=== PATIENT | male | born 1975 | race Caucasian/White ===

== ENCOUNTER 2021-02-09 11:56 | Emergency (ER) | payer OTHER ==
[~2021-02-09] VITALS: Ht 182.9 cm; Wt 97.7 kg
[~2021-02-09 11:56] MED LIST: COLC0.6T PO; DICL500C PO; NAPR500T OR; PERC5TAB8 OR; PRED20TA PO; [UNRECOGNIZED DRUG - OTHER] PO
[2021-02-09] MEDS ORDERED: ACETAMINOPHEN 500 MG TAB PO ONE (14:10)
[2021-02-09] MEDS ORDERED: IBUPROFEN 800 MG TAB PO ONE (14:10)
--- NOTE | 2021-02-09 15:03 | REP ---
INDICATION: LATERAL JOINT PAIN S/P HYPEREXTENSION INJURY COMPARISON: 12/25/2010 TECHNIQUE: Four views without a sunrise view FINDINGS: The examination is somewhat limited without a sunrise view. There is minimal medial compartmental marginal osteophytosis. This is unchanged. There is mild patellar marginal osteophytosis. This has developed since the last exam. There is no evidence of an acute fracture. IMPRESSION: Chronic changes as described above. <Electronically signed by Misael Cheng > 02/09/21 1500
--- NOTE | 2021-02-09 15:07 | REP ---
INDICATION: LATERAL MALLEOLUS TENDER S/P FORCED PLANTAR FLEXION FOOT. COMPARISON: 12/25/2010 TECHNIQUE: Four views FINDINGS: Mild anterior tibiotalar degenerative change has developed since the last exam. The mortise is intact. There is no acute fracture, dislocation, or subluxation. IMPRESSION: No acute osseous abnormality. <Electronically signed by Misael Cheng > 02/09/21 [id number]
--- NOTE | 2021-02-09 15:09 | REP ---
INDICATION: 5TH METATARSAL TENDER S/P FORCED PLANTAR FLEXION FOOT. COMPARISON: 12/25/2010 TECHNIQUE: Four views FINDINGS: The joint spaces are symmetric and relatively well maintained. There is no evidence of acute fracture or destructive osseous lesion. IMPRESSION: No significant change from the prior exam. No acute osseous abnormality. <Electronically signed by Misael Cheng > 02/09/21 [id number]
[2021-02-09] MEDS ORDERED: ACET500P3 PO (15:54)
[2021-02-09] MEDS ORDERED: IBUP80TA PO (15:54)
[2021-02-09 16:08] VITALS: BP 124/71
== END 2021-02-09 16:11 | disposition home or self-care (01) ==
LOC: M ED 11:56
DX: M17.12 Unilateral primary osteoarthritis, left knee (principal); M19.072 Primary osteoarthritis, left ankle and foot; M25.562 Pain in left knee; M25.572 Pain in left ankle and joints of left foot; W50.0XXA Accidental hit or strike by another person, initial encounter; Y92.009 Unspecified place in unspecified non-institutional (private) residence as the place of occurrence of the external cause; Y93.9 Activity, unspecified; Y99.9 Unspecified external cause status; M54.2 Cervicalgia; M54.50 Low back pain, unspecified; K21.9 Gastro-esophageal reflux disease without esophagitis; F17.200 Nicotine dependence, unspecified, uncomplicated; Z79.899 Other long term (current) drug therapy